=== PATIENT | female | born 1950 | race African-American/Black ===

== ENCOUNTER → 2018-09-05 | Outpatient (CLI) | payer MEDICARE, BC, OTHER ==
[~2018-09-05] MED LIST: ADVIL PM CAPLE1 EACH PO; ANASTROZOLE1 MG PO; CELEXA20 MG PO; COZAAR100 MG PO
[2018-09-05 14:47] LABS: ALBUMIN 3.6 g/dL (3.4-5.0); CREATININE 1.1 mg/dL (0.6-1.3); POTASSIUM 3.9 mmol/L (3.5-5.1); TOTAL BILIRUBIN 0.3 mg/dL (<0.1-1.0); TOTAL PROTEIN 7.4 g/dL (6.4-8.2)
[2018-09-05 14:51] LABS: ABSOLUTE LYMPHOCYTES 1.1 thou/uL (0.8-5.3); ABSOLUTE MONOCYTES 0.5 thou/uL (0.0-1.2); ABSOLUTE NEUTROPHILS 3.9 thou/uL (1.6-8.1); BASOPHILS 0.8 %; EOSINOPHILS 0.8 %; HEMATOCRIT 42.7 % (37.0-47.0); HEMOGLOBIN 13.8 gm/dL (12.0-15.0); LYMPHOCYTES 19.5 %; MCHC 32.3 g/dL (28.0-37.0); MCV 86.6 fL (80.0-100.0); MONOCYTES 8.9 %; MPV 9.3 fl. (7.2-11.1); NUCLEATED RBCS 0 /100WBC; PLATELET COUNT* 218 thou/uL (150-400); RBC 4.92 mil/uL (4.20-5.00); RDW-CV 14.3 % (10.5-14.5); WBC 5.6 thou/uL (4.0-11.0)
== END ==
LOC: M.RAD 09-03 10:40 → M.LAB 09-03 11:00 → M.RAD 13:27
PROVIDERS: Radiology Radiation Oncology
DX: R92.8 Other abnormal and inconclusive findings on diagnostic imaging of breast (principal); D05.12 Intraductal carcinoma in situ of left breast; C82.90 Follicular lymphoma, unspecified, unspecified site

== ENCOUNTER → 2019-09-05 | Outpatient (CLI) | payer MEDICARE, BC, OTHER | LOC: M.RAD 13:53 | DX: D05.12 Intraductal carcinoma in situ of left breast (principal); R92.2 Inconclusive mammogram; Z85.3 Personal history of malignant neoplasm of breast; Z98.890 Other specified postprocedural states ==

== ENCOUNTER → 2020-09-08 | Outpatient (CLI) | payer MEDICARE, BC, OTHER | LOC: M.RAD 13:51 | PROVIDERS: ATTEND Internal Medicine Hematology & Oncology | DX: D05.12 Intraductal carcinoma in situ of left breast (principal) ==

== ENCOUNTER → 2021-10-06 | Outpatient (CLI) | payer MEDICARE, BC | LOC: M.RAD 14:00 | PROVIDERS: ATTEND Nurse Practitioner Family | DX: Z12.31 Encounter for screening mammogram for malignant neoplasm of breast (principal) ==